=== PATIENT | male | born 1965 | race American Indian/Alaskan Native ===

== ENCOUNTER 2017-06-12 18:41 | Inpatient (IN) | payer OTHER ==
[2017-06-12 18:56] VITALS: BMI 48.1
[2017-06-12 19:25] LABS: ARTERIAL BLOOD GAS HCO3 22.8 mmol/L (21-28); ARTERIAL BLOOD GAS O2 CAPACITY 16.6 mL/dl (16-24); ARTERIAL BLOOD GAS O2 CONTENT 14.7 ML/dl (15-23); ARTERIAL BLOOD GAS PH 7.25 (7.35-7.45); ARTERIAL BLOOD HGB O2 SAT 83.3 % (95.0-98.0); CARBOXYHEMOGLOBIN 5.2 % (0.5-1.5); HHB 10.6 % (0-5); METHEMOGLOBIN 0.9 % (0.0-3.0)
[2017-06-12 19:37] LABS: BASO # 0.01 K/mm3 (0.0-2.0); BASO % 0.2 % (0.0-3.0); EOS # 0.1 (0.0-0.7); EOS % 1.2 % (1.5-5.0); GRAN # 2.85 (1.4-6.5); GRAN % 48.8 % (50.0-68.0); HEMATOCRIT 38.2 % (42.0-52.0); LYMPH # 2.5 (1.2-3.4); LYMPH % 43.5 % (22.0-35.0); MEAN CELL VOLUME 92.9 fl (80.0-105.0); MEAN CORPUSCULAR HEMOGLOBIN 30.9 pg (25.0-35.0); MEAN CORPUSCULAR HGB CONC 33.2 g/dl (31.0-37.0); MONO # 0.4 (0.1-0.6); MONO % 6.3 % (1.0-6.0); RED CELL DISTRIBUTION WIDTH 13.9 % (11.5-14.5); WHITE BLOOD COUNT 5.8 10^3/ul (4.5-11.0)
[2017-06-12 19:49] LABS: INR 0.99 (0.93-1.08); PARTIAL THROMBOPLASTIN TIME 22.9 Seconds (23.7-30.8)
[2017-06-12 19:54] LABS: ALB/GLOB RATIO 1.4 (1.1-1.8); ALKALINE PHOSPHATASE 63 U/L (38-126); ALT/SGPT 21 U/L (7-56); AST/SGOT 29 U/L (17-59); BILIRUBIN,TOTAL 0.6 mg/dL (0.2-1.3); BLOOD UREA NITROGEN 12 mg/dL (7-21); CALCIUM 8.8 mg/dL (8.4-10.5); CARBON DIOXIDE 24 mmol/L (21-33); CHLORIDE 103 mmol/L (98-107); GFR AFRICAN-AMERICAN > 60; GLUCOSE,RANDOM 220 mg/dL (70-110); POTASSIUM 3.5 mmol/L (3.6-5.0); SODIUM 145 mmol/L (132-148)
[2017-06-12 19:58] LABS: ALCOHOL SERUM < 10 mg/dL (0-10)
[2017-06-12] MEDS ORDERED: Sodium Chloride 0.9% 1,000 ML IV ONE (19:59)
[2017-06-12 20:03] LABS: TROPONIN I 0.02 ng/mL
[2017-06-12 20:12] LABS: URINE BILIRUBIN NEGATIVE (NEGATIVE); URINE BLOOD NEGATIVE (NEGATIVE); URINE GLUCOSE (UA) NEGATIVE (NEGATIVE); URINE KETONE NEGATIVE (NEGATIVE); URINE LEUKOCYTE ESTERASE NEGATIVE Leu/uL (NEGATIVE); URINE PROTEIN 30 mg/dL (<30 mg/dL)
[2017-06-12] MEDS ORDERED: Vancomycin 2 GM in Sodium Chloride 0.9% 500 ML IVPB ONE (20:13)
[2017-06-12] MEDS ORDERED: cefTRIAXone 2 GM IN NS 2 GM/100 ML BAG IVPB STA (20:13)
[2017-06-12 20:22] LABS: THYROID STIMULATING HORMONE 3.16 mIU/mL (0.46-4.68)
[2017-06-12 20:26] LABS: URINE APPEARANCE CLEAR (CLEAR); URINE COLOR YELLOW (YELLOW)
[2017-06-12 20:30] LABS: URINE RBC 0 - 2 /hpf (0-2)
[2017-06-12 20:31] LABS: URINE AMORPHOUS SEDIMENT FEW; URINE BACTERIA MOD (NEG); URINE EPITHELIAL CELLS 0 - 2 /hpf (0-5)
--- NOTE | 2017-06-12 21:01 | ED PDOC ---
Arrival/HPI - General Chief Complaint: Seizure Time Seen by Provider: 06/12/17 18:43 Historian: EMS EM Caveat: Altered Mental Status - Critical Care Critical Care Minutes: 45 minutes - History of Present Illness Time/Duration: Prior to Arrival Symptom Course: Unchanged Associated Symptoms (Text): 06/12/17 20:58 Patient presents to the emergency department via ambulance accompanied by medics. Patient alternates between periods of being somewhat lucid and severe agitation. Medics report that the patient was outside and bystanders report that he was doing exercises and then fell to the ground and may or may not have had some kind of seizure activity. He was then extremely agitated. Police were called and medics arrived and patient was brought to the emergency department. In the emergency department the patient alternates between episodes of being somewhat lucid and severe agitation. He required chemical and physical restraints for his own protection and the protection of staff. Patient is extremely large and powerful. He is unable to give any history. There is no past medical history available. Patient apparently has never been to this hospital. Medications and allergies are all unknown. He is unable to give any review of systems. He appears that he may have some kind of substance abuse. He is tachycardic severely diaphoretic and agitated and hypotensive with a blood pressure of 90. Past Medical History - Infectious Disease Hx of Infectious Diseases: None - Psychiatric Hx Substance Use: No (unable to obtain) - Surgical History Other/Comment: unable to obtain - Anesthesia Hx Anesthesia: No Hx Anesthesia Reactions: No Hx Malignant Hyperthermia: No Family/Social History - Physician Review Nursing Documentation Reviewed: Yes Family/Social History: Unknown Family HX Smoking Status: unable to Hx Alcohol Use: No (unable to obtain) Hx Substance Use: No (unable to obtain) Allergies/Home Meds Allergies/Adverse Reactions: Allergies No Known Allergies Allergy (Unverified 06/12/17 18:56) Home Medications: Home Meds Medication Instructions Recorded Confirmed Unobtainable 06/12/17 06/12/17 Review of Systems - Review of Systems Systems not reviewed;Unavailable: Altered Mental Status Physical Exam Vital Signs Temp Pulse Resp BP Pulse Ox 06/12/17 20:07 101.8 F H 120 H 19 120/79 96 06/12/17 18:46 141 H 20 98/73 L 95 Temperature: Febrile Blood Pressure: Hypotensive Pulse: Tachycardic Respiratory Rate: Normal Appearance: Positive for: Well-Appearing, Ill-Appearing Pain Distress: None Mental Status: Positive for: Confused, Agitated Finger Stick Blood Glucose: 225 - Systems Exam Head: Present: Atraumatic, Normocephalic Pupils: Present: Sluggish, Pinpoint Extroacular Muscles: Present: EOMI Conjunctiva: Present: Normal Ears: Present: NORMAL TM, Normal Canal. No: Erythema Mouth: Present: Moist Mucous Membranes Pharnyx: No: ERYTHEMA, EXUDATE, TONSILS ENLARGED Neck: Present: Normal Range of Motion Respiratory/Chest: Present: Clear to Auscultation, Good Air Exchange, Decreased Breath Sounds. No: Respiratory Distress, Accessory Muscle Use Cardiovascular: Present: Regular Rate and Rhythm, Normal S1, S2, Tachycardic. No: Murmurs Abdomen: Present: Normal Bowel Sounds. No: Tenderness, Distention, Rebound, Guarding Back: Present: Normal Inspection Upper Extremity: Present: Normal Inspection. No: Cyanosis, Edema Lower Extremity: Present: Normal Inspection. No: Edema Neurological: Present: CN II-XII Intact, Motor Func Grossly Intact, Other ( unable to test sensation coordinatio gait and stance) Skin: Present: Warm, Normal Color, Diaphoretic. No: Dry, Rashes Psychiatric: Present: Agitated Medical Decision Making ED Course and Treatment: 06/12/17 21:05 EKG shows sinus tachycardia rate approximately 135 with LVH and strain. No acute ST or T-wave changes. No old available for comparison. 06/12/17 21:08 Patient has not had his CT scan of the head. I do not feel that it is safe to remove the patient's restraints at this time. 06/12/17 21:10 Patient was seen and evaluated by the screw machine adjuster automatic for possible ICU admission. He does not feel that the patient needs ICU admission. He will watch the patient in telemetry and upgrade to ICU as necessary. Patient has sepsis with an elevated lactic acid with no apparent source. Possible meningitis, but the patient will require interventional radiology for spinal tap because of his large body habitus. He has been treated with vancomycin and Rocephin. Blood and urine cultures have been obtained. His chest x-ray and urinalysis are unrevealing. He will be admitted to the hospitalist service. - Lab Interpretations Lab Results: 06/12/17 19:15 06/12/17 19:15 Lab Results 06/12/17 20:30: Lactic Acid 2.7 H 06/12/17 20:30: Ammonia 13 06/12/17 19:52: Urine Opiates Screen Positive H, Urine Methadone Screen Negative , Ur Barbiturates Screen Negative, Ur Phencyclidine Scrn Negative, Ur Amphetamines Screen Negative, U Benzodiazepines Scrn Negative, U Oth Cocaine Metabols Negative, U Cannabinoids Screen Negative 06/12/17 19:52: Urine Color Yellow, Urine Appearance Clear, Urine pH 6.0, Ur Specific [place] 1.025, Urine Protein 30 H, Urine Glucose (UA) Negative, Urine Ketones Negative, Urine Blood Negative, Urine Nitrate Negative, Urine Bilirubin Negative, Urine Urobilinogen 1.0 H, Ur Leukocyte Esterase Negative, Urine RBC 0 - 2, Urine WBC 1 - 3, Ur Epithelial Cells 0 - 2, Amorphous Sediment Few, Urine Bacteria Mod 06/12/17 19:20: Acetaminophen < 10.0 L 06/12/17 19:15: TSH 3rd Generation 3.16, Alcohol, Quantitative < 10 06/12/17 19:15: Sodium 145, Potassium 3.5 L, Chloride 103, Carbon Dioxide 24, Anion Gap 22 H, BUN 12, Creatinine 1.4, Est GFR ( Amer) > 60, Est GFR ( Non-Af Amer) 53, Random Glucose 220 H, Calcium 8.8, Phosphorus 5.0 H, Magnesium 2.0, Total Bilirubin 0.6, AST 29, ALT 21, Alkaline Phosphatase 63, Lactate Dehydrogenase 604, Total Creatine Kinase 277 H, CK-MB (CK-2) 1.5, CK-MB (CK-2) % Cancelled, Troponin I 0.02, Total Protein 8.0, Albumin 4.6, Globulin 3.4, Albumin/Globulin Ratio 1.4 06/12/17 19:15: PT 10.7, INR 0.99, APTT 22.9 L 06/12/17 19:15: WBC 5.8, RBC 4.11, Hgb 12.7 L, Hct 38.2 L, MCV 92.9, MCH 30.9, MCHC 33.2, RDW 13.9, Plt Count 373, MPV 10.0, Gran % 48.8 L, Lymph % (Auto) 43.5 H, Person % (Auto) 6.3 H, Eos % (Auto) 1.2 L, Baso % (Auto) 0.2, Gran # 2.85 , Lymph # 2.5, Person # 0.4, Eos # 0.1, Baso # 0.01 06/12/17 19:00: pCO2 52 H, pO2 51.0 L, HCO3 22.8, ABG pH 7.25 L, ABG Total CO2 24.4, ABG O2 Saturation 88.7 L, ABG O2 Content 14.7 L, ABG Base Excess -4.8 L, ABG Hemoglobin 12.6, ABG Carboxyhemoglobin 5.2 H, POC ABG HHb (Measured) 10.6 H , ABG Methemoglobin 0.9, ABG O2 Capacity 16.6, Hgb O2 Saturation 83.3 L, FiO2 21.0 06/12/17 18:46: POC Glucose (mg/dL) 225 H - RAD Interpretation Radiology Orders: 06/12/17 18:56 HEAD W/O CONTRAST [CT] Stat 06/12/17 18:57 CHEST PORTABLE [RAD] Stat X-ray chest required two AP views as a portable exam to include the patient's entire chest showed no infiltrate effusion or cardiomegaly Data Reviewer: ED Physician - Medication Orders Current Medication Orders: Sodium Chloride (Sodium Chloride 0.9%) 1,000 mls @ 500 mls/hr IV ONCE ONE Stop: 06/12/17 21:58 Last Admin: 06/12/17 19:30 Dose: 500 mls/hr eMAR Start Stop Document 06/12/17 19:30 RD (Rec: 06/12/17 20:21 RD [id number]) Intravenous Solution Start Date 06/12/17 Start Time 19:30 End Date 06/12/17 End time 21:30 Total Infusion Time 120 Vancomycin HCl 2 gm/ Sodium (Chloride) 500 mls @ 170 mls/hr IVPB ONCE ONE PRN Reason: Protocol Stop: 06/12/17 23:09 Discontinued Medications Ceftriaxone Sodium (Rocephin 2 Gm Ivpb) 2 gm in 100 mls @ 100 mls/hr IVPB STAT STA PRN Reason: Protocol Stop: 06/12/17 21:12 Last Admin: 06/12/17 20:38 Dose: 100 mls/hr eMAR Start Stop Document 06/12/17 20:38 RD (Rec: 06/12/17 20:38 RD [id number]) Intravenous Solution Start Date 06/12/17 Start Time 20:38 End Date 06/12/17 End time 21:38 Total Infusion Time 60 Lorazepam (Ativan) 2 mg IM STAT STA Stop: 06/12/17 18:57 Last Admin: 06/12/17 19:02 Dose: Ziprasidone (Geodon Inj) 20 mg IM STAT STA Stop: 06/12/17 18:57 Last Admin: 06/12/17 19:02 Dose: Disposition/Present on Arrival - Present on Arrival Any Indicators Present on Arrival: No History of DVT/PE: No History of Uncontrolled Diabetes: No Urinary Catheter: No History of Decub. Ulcer: No History Surgical Site Infection Following: None - Disposition Have Diagnosis and Disposition been Completed?: Yes Diagnosis: Fever, Sepsis, Hyperglycemia, Hypokalemia, Altered mental status, Anemia, Hypoxia, Hypercarbia, Tachycardia, Hypotension, Positive urine drug screen Disposition: HOSPITALIZED Disposition Time: 21:13 Patient Plan: Admission, Telemetry Patient Problems: Current Active Problems Problem Status Onset Altered mental status Acute Anemia Acute Fever Acute Hypercarbia Acute Hyperglycemia Acute Hypokalemia Acute Hypoxia Acute Sepsis Acute Condition: CRITICAL Discharge Instructions (ExitCare): Sepsis (ED) Referrals: PCP,NO [Primary Care Provider] - Follow up with primary Forms: [employer] ([place])
[2017-06-12] MEDS ORDERED: Piperacillin/Tazobact 3.375 gm 100 ML IVPB STA (21:59)
[2017-06-12 22:27] VITALS: O2SAT 97
[2017-06-12] MEDS: Sodium Chloride 0.9% 1,000 ML IV SCH (22:28)
--- NOTE | 2017-06-12 22:43 | CT ---
EXAM: CT Head Without Intravenous Contrast CLINICAL HISTORY: 52 years old, male; Signs and symptoms; Altered mental status/memory loss; Other: Ams/seizure TECHNIQUE: Axial computed tomography images of the head/brain without intravenous contrast. All CT scans at this facility use one or more dose reduction techniques, viz.: automated exposure control; ma/kV adjustment per patient size (including targeted exams where dose is matched to indication; i.e. head); or iterative reconstruction technique. COMPARISON: No relevant prior studies available. FINDINGS: Brain: No acute intracranial hemorrhage. No significant white matter disease. No edema. Ventricles: No significant ventriculomegaly. Bones: No acute displaced fracture. Sinuses: Unremarkable as visualized. No acute sinusitis. Mastoid air cells: Unremarkable as visualized. No mastoid effusion. IMPRESSION: No acute intracranial hemorrhage, or suspicious mass effect.
--- NOTE | 2017-06-12 23:00 | CP.PCM.HP ---
<Jesu Solis - Last Filed: 06/13/17 08:10> History of Present Illness - History of Present Illness History of Present Illness: Chief Complaint AMS HPI Patient is a 52 year old male who presents to [facility] ED 06/14/17 by [facility] stating he was found passed out on the street. Patient states that the night prior he was awake all night attempting to fix his car. He states that he took about four 800 mg Motrin and consumed a 6 pack of beer throughout the night. He then states that he rested his eyes for thirty minutes and woke up to [place] the [place] so he could get money from his son in [place] so he could pay the fender mechanic to help fix his car. He walked for thirty minutes to the light rail station but while on his way he states he stopped at the fender mechanic chatted and drank about two more beers before finally making it to the station. He then states the last he remembers was getting on the train and waking up in the hospital. He states that this happened once before when he didn't get any sleep the night prior. He denies a past history of seizures. Patient states he has been fasting since the start of the summer. His fast includes one meal a day. Patient's last meal was the night before he was found passed out on the light rail. Patient denies any current headache, n/v /d/f/c, dizziness, chest pain, weakness stating his main medical issue are his slipped vertebral discs and leg cramping. PMD: Dr. Kathleen Surgical history: none Family history: extensive for asymptomatic CVA's and OH's Allergies: NKDA Social History: 10 cigarettes per day, 6 beers a day, opiate use Present on Admission - Present on Admission Any Indicators Present on Admission: No Review of Systems - Constitutional Constitutional: absent: Chills, Fever - EENT Eyes: absent: Blurred Vision, Change in Vision Nose/Mouth/Throat: absent: Nasal Congestion, Nasal Discharge - Cardiovascular Cardiovascular: absent: Chest Pain, Dyspnea - Respiratory Respiratory: absent: Cough, Dyspnea - Gastrointestinal Gastrointestinal: absent: Abdominal Pain, Diarrhea, Nausea, Vomiting - Genitourinary Genitourinary: absent: Difficulty Urinating, Dysuria - Neurological Neurological: absent: Dizziness, Tremor, Vertigo - Psychiatric Psychiatric: absent: Anhedonia, Anxiety Past Patient History - Infectious Disease Hx of Infectious Diseases: None - Past Social History Smoking Status: unable to - PSYCHIATRIC Hx Substance Use: No (unable to obtain) - SURGICAL HISTORY Other/Comment: unable to obtain - ANESTHESIA Hx Anesthesia: No Hx Anesthesia Reactions: No Hx Malignant Hyperthermia: No Meds Allergies/Adverse Reactions: Allergies Allergy/AdvReac Type Severity Reaction Status Date / Time No Known Allergies Allergy Unverified 06/12/17 18:56 Physical Exam - Constitutional Appears: Well - Head Exam Head Exam: ATRAUMATIC, NORMAL INSPECTION, NORMOCEPHALIC - Eye Exam Eye Exam: EOMI, Normal appearance - ENT Exam ENT Exam: Mucous Membranes Moist, Normal Exam - Neck Exam Neck exam: Positive for: Normal Inspection - Respiratory Exam Respiratory Exam: Clear to Auscultation Bilateral, NORMAL BREATHING PATTERN. absent: Rhonchi, Wheezes - Cardiovascular Exam Cardiovascular Exam: REGULAR RHYTHM, +S1, +S2 - GI/Abdominal Exam GI & Abdominal Exam: Normal Bowel Sounds, Soft - Extremities Exam Extremities exam: Positive for: normal inspection - Back Exam Back exam: NORMAL INSPECTION - Neurological Exam Neurological exam: Alert, CN II-XII Intact, Oriented x3 - Psychiatric Exam Psychiatric exam: Normal Affect, Normal Mood - Skin Skin Exam: Normal Color, Warm Results - Vital Signs Recent Vital Signs: Last Vital Signs Temp 98.1 F 06/12/17 22:26 Pulse 109 H 06/12/17 22:26 Resp 18 06/12/17 22:26 BP 133/78 06/12/17 22:26 Pulse Ox 97 06/12/17 22:26 - Labs Result Diagrams: 06/13/17 06:45 06/13/17 06:45 Assessment & Plan - Assessment and Plan (Free Text) Assessment: Assessment 52 year old male presenting with AMS Plan Plan: Plan 1. AMS and Leukocytosis - CT head reveals no ICH - F/u results of CXR - Vancomycin - Zosyn - Alcohol serum <10 - Urine drug screen revealed opiate use - UA negative for UTI 2. Elevated Troponins - Initially 0.02, 2nd trops 0.50, 3rd set increased to 0.63 - Cardio consulted - Continue to trend serial EKGs - Aspirin 324 mg chewable given - Lovenox mg 170 given DVT/GI prophylaxis - Heparin/Protonix <Deion Rm MD - Last Filed: 06/14/17 11:22> Results - Vital Signs Recent Vital Signs: Last Vital Signs Temp 98.8 F 06/14/17 06:00 Pulse 79 06/14/17 06:00 Resp 20 06/14/17 06:00 BP 134/75 06/14/17 06:00 Pulse Ox 97 06/14/17 06:00 - Labs Result Diagrams: 06/14/17 07:00 06/14/17 07:00 Labs: Laboratory Results - last 24 hr 06/13/17 06/13/17 06/13/17 06:45 06:45 15:20 WBC RBC Hgb Hct MCV MCH MCHC RDW Plt Count MPV Gran % Lymph % (Auto) [place] % (Auto) Eos % (Auto) Baso % (Auto) Gran # Lymph # [place] # Eos # Baso # Sodium Potassium Chloride Carbon Dioxide Anion Gap BUN Creatinine Est GFR ( Amer) Est GFR (Non-Af Amer) Random Glucose Hemoglobin A1c 6.9 H Lactic Acid Calcium Total Bilirubin AST ALT Alkaline Phosphatase Troponin I 0.29 H* D C-React Prot High Sens 5.24 H Total Protein Albumin Globulin Albumin/Globulin Ratio 06/13/17 06/14/17 06/14/17 23:00 07:00 07:00 WBC 5.2 D RBC 3.71 Hgb 11.3 L Hct 34.3 L MCV 92.5 MCH 30.5 MCHC 32.9 RDW 14.1 Plt Count 251 MPV 9.7 Gran % 49.4 L Lymph % (Auto) 39.4 H [place] % (Auto) 8.7 H Eos % (Auto) 2.3 Baso % (Auto) 0.2 Gran # 2.57 Lymph # 2.1 [place] # 0.5 Eos # 0.1 Baso # 0.01 Sodium 142 Potassium 3.5 L Chloride 108 H Carbon Dioxide 26 Anion Gap 12 BUN 12 Creatinine 1.0 Est GFR ( Amer) > 60 Est GFR (Non-Af Amer) > 60 Random Glucose 115 H Hemoglobin A1c Lactic Acid Calcium 8.4 Total Bilirubin 0.5 AST 53 ALT 26 Alkaline Phosphatase 58 Troponin I 0.21 H* D C-React Prot High Sens Total Protein 6.7 Albumin 3.7 Globulin 3.0 Albumin/Globulin Ratio 1.2 06/14/17 10:00 WBC RBC Hgb Hct MCV MCH MCHC RDW Plt Count MPV Gran % Lymph % (Auto) [place] % (Auto) Eos % (Auto) Baso % (Auto) Gran # Lymph # [place] # Eos # Baso # Sodium Potassium Chloride Carbon Dioxide Anion Gap BUN Creatinine Est GFR ( Amer) Est GFR (Non-Af Amer) Random Glucose Hemoglobin A1c Lactic Acid 1.1 Calcium Total Bilirubin AST ALT Alkaline Phosphatase Troponin I C-React Prot High Sens Total Protein Albumin Globulin Albumin/Globulin Ratio Attending/Attestation - Attestation I have personally seen and examined this patient.: Yes I have fully participated in the care of the patient.: Yes I have reviewed all pertinent clinical information: Yes Notes (Text): -I agree with the above H&P completed by the resident physician with the following additions and/or changes: -The patient is a 52 year old man with no significant medical history, being admitted for syncopal episode possibly due to opiate abuse (vs cardiac etiology) . CT-head was negative. Of note, after being admitted to the [facility] this AM, his 2nd troponin returned elevated at 0.50 (although the patient denies chest pain). EKG didn't showed only non-specific ST changes but no ST-elevation. He will be started on daily ASA and therpeutic Lovenox (for presumed NSTEMI treatment). Cardiology has been consulted for further evaluation. Serial trop's and EKG's will also be monitored.
[2017-06-12] MEDS ORDERED: Pneumococcal 23-Valent Vaccine IM ONE (23:22)
[2017-06-12] MEDS: Insulin Reg-LOW-Coverage SC SCH (23:36)
[2017-06-13] MEDS ORDERED: Enoxaparin 40 mg Syringe SC STA (02:48)
[2017-06-13] MEDS ORDERED: Enoxaparin 150 mg Syringe SC STA (03:32)
[2017-06-13 07:22] LABS: BASO # 0.01 K/mm3 (0.0-2.0); BASO % 0.1 % (0.0-3.0); EOS # 0.1 (0.0-0.7); EOS % 0.9 % (1.5-5.0); GRAN # 4.81 (1.4-6.5); HEMATOCRIT 32.5 % (42.0-52.0); LYMPH # 2.2 (1.2-3.4); LYMPH % 28.3 % (22.0-35.0); MEAN CELL VOLUME 93.1 fl (80.0-105.0); MEAN CORPUSCULAR HEMOGLOBIN 30.1 pg (25.0-35.0); MEAN CORPUSCULAR HGB CONC 32.3 g/dl (31.0-37.0); MEAN PLATELET VOLUME 9.7 fl (7.0-11.0); MONO # 0.6 (0.1-0.6); MONO % 7.7 % (1.0-6.0); RED CELL DISTRIBUTION WIDTH 14.4 % (11.5-14.5); WHITE BLOOD COUNT 7.6 10^3/ul (4.5-11.0)
[2017-06-13 07:36] LABS: ALB/GLOB RATIO 1.3 (1.1-1.8); ALKALINE PHOSPHATASE 54 U/L (38-126); ALT/SGPT 29 U/L (7-56); AST/SGOT 55 U/L (17-59); BILIRUBIN,TOTAL 0.4 mg/dL (0.2-1.3); BLOOD UREA NITROGEN 12 mg/dL (7-21); CALCIUM 8.2 mg/dL (8.4-10.5); CARBON DIOXIDE 25 mmol/L (21-33); CHLORIDE 107 mmol/L (98-107); GFR AFRICAN-AMERICAN > 60; GLUCOSE,RANDOM 105 mg/dL (70-110); POTASSIUM 3.4 mmol/L (3.6-5.0); SODIUM 142 mmol/L (132-148); TOTAL PROTEIN 6.5 g/dL (5.8-8.3)
[2017-06-13 07:47] LABS: TROPONIN I 0.63 ng/mL
[2017-06-13] MEDS: Insulin Reg-LOW-Coverage SC SCH ×4 (08:35→22:10)
[2017-06-13] MEDS: Sodium Chloride 0.9% 1,000 ML IV SCH ×2 (08:36→17:07)
[2017-06-13] MEDS: Vancomycin 1gm in NS 250ml 1 GM/250 ML BAG IVPB SCH (09:37)
[2017-06-13] MEDS: Enoxaparin 80 mg Syringe SC SCH ×2 (09:47→21:43)
--- NOTE | 2017-06-13 10:51 | RAD ---
HISTORY: Altered mental status. Technique: Single view portable semi erect @ 20:30 COMPARISON: No prior. FINDINGS: LUNGS: No active pulmonary disease. PLEURA: No significant pleural effusion identified, no pneumothorax apparent. CARDIOVASCULAR: Cardiomegaly. No evidence of acute, significant cardiovascular disease. OSSEOUS STRUCTURES: No significant abnormalities. VISUALIZED UPPER ABDOMEN: Normal. OTHER FINDINGS: None. IMPRESSION: No active disease. Please note: No preliminary report/ innterpretation of this examination provided by emergency department personnel.
--- NOTE | 2017-06-13 11:50 | CON ---
DATE: 06/13/2017 REQUESTING PHYSICIAN: Dr. Smith. REASON FOR CONSULTATION: Elevated troponin. HISTORY OF PRESENT ILLNESS: This is a 52-year-old man, brought to the emergency room via ambulance with altered mental status. He apparently had a syncopal event. He was seen on telemetry. He is somewhat somnolent and unable to get much history at the present time. Every question is answered with request to remove his Erickson catheter. According to the hospital records, he had been up all night trying to repair his car. He was drinking beer as well as taking multiple Motrin. He was brought to the emergency room. He was tachycardiac and transiently hypotensive. He denies any chest pain. His toxicology screen was positive for opiates. PAST MEDICAL HISTORY: His past history is notable for some back issues. MEDICATIONS: He has been started on Ecotrin, insulin coverage, and vancomycin. ALLERGIES: NONE. SOCIAL HISTORY: He has a history of alcohol use. He denies smoking. FAMILY HISTORY: He cannot recall. REVIEW OF SYSTEMS: A 10-point review of systems is virtually unobtainable given his mental status. PHYSICAL EXAMINATION: GENERAL: He is an obese, middle-aged man. VITAL SIGNS: His blood pressure is 132/78 with a pulse of 110 and sinus, respirations are 16. He is afebrile. HEENT: Thick neck is noted. No JVD seen. CHEST: Few scattered rhonchi. HEART: PMI displaced laterally with systolic murmur in the lower left sternal border. ABDOMEN: Soft, obese, nontender, normoactive bowel sounds. EXTREMITIES: No edema. SKIN: Warm and dry. PSYCHIATRIC: Appears calm at present. NEUROLOGIC: Moving all four extremities. Oriented to person and year. DIAGNOSTIC DATA: Initial troponin 0.02, follow up is 0.50. CK is 277. Potassium 3.5, BUN and creatinine are 12 and 1.4, glucose is 220. White count 5.8, hemoglobin and hematocrit, 12.7 and 38.2 with platelet counts 373,000. PT and PTT are normal. Arterial blood gas showed a pH of 7.25, PCO2 of 52, and PO2 of 51 on room air. Toxicology was positive for opiates. Alcohol level was less than 10. Electrocardiogram reveals sinus rhythm with LVH with repolarization abnormalities. Chest x-ray is pending. IMPRESSION: 1. Borderline troponin of questionable significance. The patient denies any chest pain at present; however, history his history giving is somewhat questionable. 2. Abnormal electrocardiogram, possible left ventricular hypertrophy. 3. Substance abuse. 4. Obesity. RECOMMENDATIONS: Followup enzymes will be planned. Repeat electrocardiogram in the morning is advisable. Hopefully, once his mental status has improved, we will possible obtain better history from the patient. Thank you for this consultation. We will be happy to follow as needed. Allen De Leon MD MTDD
--- NOTE | 2017-06-13 18:42 | CARD ---
APPROVED REPORT EKG Measurement Heart [id number] [place] [id number] <Conclusion> Normal sinus rhythm Marked ST abnormality, possible inferior subendocardial injury Prolonged QT Abnormal ECG
--- NOTE | 2017-06-13 19:36 | CARD ---
APPROVED REPORT EKG Measurement Heart [id number] [place] [id number] <Conclusion> Sinus tachycardia Left ventricular hypertrophy with repolarization abnormality Consider cintia-lateral ischemia Abnormal ECG
--- NOTE | 2017-06-13 19:49 | CARD ---
APPROVED REPORT EKG Measurement Heart [id number] [place] [id number] [id number] <Conclusion> Normal sinus rhythm Marked ST abnormality, possible inferior subendocardial injury Prolonged QT Abnormal ECG
[2017-06-14 06:13] VITALS: BP 134/75; RESP 20; TEMP 98.8
[2017-06-14] MEDS: Sodium Chloride 0.9% 1,000 ML IV SCH (06:59)
[2017-06-14 07:21] LABS: BASO # 0.01 K/mm3 (0.0-2.0); BASO % 0.2 % (0.0-3.0); EOS # 0.1 (0.0-0.7); EOS % 2.3 % (1.5-5.0); GRAN # 2.57 (1.4-6.5); GRAN % 49.4 % (50.0-68.0); HEMATOCRIT 34.3 % (42.0-52.0); LYMPH # 2.1 (1.2-3.4); LYMPH % 39.4 % (22.0-35.0); MEAN CELL VOLUME 92.5 fl (80.0-105.0); MEAN CORPUSCULAR HEMOGLOBIN 30.5 pg (25.0-35.0); MEAN CORPUSCULAR HGB CONC 32.9 g/dl (31.0-37.0); MEAN PLATELET VOLUME 9.7 fl (7.0-11.0); MONO # 0.5 (0.1-0.6); MONO % 8.7 % (1.0-6.0); RED CELL DISTRIBUTION WIDTH 14.1 % (11.5-14.5); WHITE BLOOD COUNT 5.2 10^3/ul (4.5-11.0)
[2017-06-14 07:37] LABS: ALB/GLOB RATIO 1.2 (1.1-1.8); ALKALINE PHOSPHATASE 58 U/L (38-126); ALT/SGPT 26 U/L (7-56); AST/SGOT 53 U/L (17-59); BILIRUBIN,TOTAL 0.5 mg/dL (0.2-1.3); BLOOD UREA NITROGEN 12 mg/dL (7-21); CALCIUM 8.4 mg/dL (8.4-10.5); CARBON DIOXIDE 26 mmol/L (21-33); CHLORIDE 108 mmol/L (98-107); GFR AFRICAN-AMERICAN > 60; GLUCOSE,RANDOM 115 mg/dL (70-110); POTASSIUM 3.5 mmol/L (3.6-5.0); SODIUM 142 mmol/L (132-148); TOTAL PROTEIN 6.7 g/dL (5.8-8.3)
[2017-06-14] MEDS: Insulin Reg-LOW-Coverage SC SCH ×2 (09:52→12:08)
[2017-06-14] MEDS: Enoxaparin 80 mg Syringe SC SCH (09:56)
[2017-06-14] MEDS: Vancomycin 1gm in NS 250ml 1 GM/250 ML BAG IVPB SCH (09:58)
[2017-06-14] MEDS ORDERED: Potassium Chloride 20 mEq ER Tab PO SCH (10:00)
--- NOTE | 2017-06-14 10:55 | CARD ---
APPROVED REPORT EKG Measurement Heart [id number] [place] [id number] <Conclusion> Sinus rhythm with occasional premature ventricular complexes ST & Marked T wave abnormality, consider anterolateral ischemia Prolonged QT Abnormal ECG
--- NOTE | 2017-06-14 15:04 | CARD ---
APPROVED REPORT EKG Measurement Heart [id number] [place] [id number] [id number] <Conclusion> Sinus rhythm with 1st degree AV block ST & T wave abnormality, consider inferolateral ischemia
[2017-06-14 16:04] VITALS: PULSE 77
--- NOTE | 2017-06-14 16:17 | CP.PCM.DIS ---
<BhaktiPointblank - Last Filed: 06/14/17 20:16> Provider - Provider Date of Admission: 06/12/17 21:16 Attending physician: Gisel Alejo MD Primary care physician: NO PRIMARY CARE PROVIDER Time Spent in preparation of Discharge (in minutes): 45 Hospital Course - Lab Results Lab Results: Most Recent Lab Values WBC 5.2 10^3/ul (4.5-11.0) D 06/14/17 07:00 RBC 3.71 10^6/uL (3.5-6.1) 06/14/17 07:00 Hgb 11.3 g/dL (14.0-18.0) L 06/14/17 07:00 Hct 34.3 % (42.0-52.0) L 06/14/17 07:00 MCV 92.5 fl (80.0-105.0) 06/14/17 07:00 MCH 30.5 pg (25.0-35.0) 06/14/17 07:00 MCHC 32.9 g/dl (31.0-37.0) 06/14/17 07:00 RDW 14.1 % (11.5-14.5) 06/14/17 07:00 Plt Count 251 10^3/uL (120.0-450.0) 06/14/17 07:00 MPV 9.7 fl (7.0-11.0) 06/14/17 07:00 Gran % 49.4 % (50.0-68.0) L 06/14/17 07:00 Lymph % (Auto) 39.4 % (22.0-35.0) H 06/14/17 07:00 [place] % (Auto) 8.7 % (1.0-6.0) H 06/14/17 07:00 Eos % (Auto) 2.3 % (1.5-5.0) 06/14/17 07:00 Baso % (Auto) 0.2 % (0.0-3.0) 06/14/17 07:00 Gran # 2.57 (1.4-6.5) 06/14/17 07:00 Lymph # 2.1 (1.2-3.4) 06/14/17 07:00 [place] # 0.5 (0.1-0.6) 06/14/17 07:00 Eos # 0.1 (0.0-0.7) 06/14/17 07:00 Baso # 0.01 K/mm3 (0.0-2.0) 06/14/17 07:00 ESR 12 mm/hr (0.00-15.0) 06/13/17 03:00 PT 10.7 Seconds (9.9-11.8) 06/12/17 19:15 INR 0.99 (0.93-1.08) 06/12/17 19:15 APTT 22.9 Seconds (23.7-30.8) L 06/12/17 19:15 pCO2 52 mm/Hg (35-45) H 06/12/17 19:00 pO2 51.0 mm/Hg (80-100) L 06/12/17 19:00 HCO3 22.8 mmol/L (21-28) 06/12/17 19:00 ABG pH 7.25 (7.35-7.45) L 06/12/17 19:00 ABG Total CO2 24.4 mmol.L (22-28) 06/12/17 19:00 ABG O2 Saturation 88.7 % (95-98) L 06/12/17 19:00 ABG O2 Content 14.7 ML/dl (15-23) L 06/12/17 19:00 ABG Base Excess -4.8 mmol/L (-2.0-3.0) L 06/12/17 19:00 ABG Hemoglobin 12.6 g/dL (11.7-17.4) 06/12/17 19:00 ABG Carboxyhemoglobin 5.2 % (0.5-1.5) H 06/12/17 19:00 POC ABG HHb (Measured) 10.6 % (0-5) H 06/12/17 19:00 ABG Methemoglobin 0.9 % (0.0-3.0) 06/12/17 19:00 ABG O2 Capacity 16.6 mL/dl (16-24) 06/12/17 19:00 Hgb O2 Saturation 83.3 % (95.0-98.0) L 06/12/17 19:00 FiO2 21.0 % 06/12/17 19:00 Sodium 142 mmol/L (132-148) 06/14/17 07:00 Potassium 3.5 mmol/L (3.6-5.0) L 06/14/17 07:00 Chloride 108 mmol/L (98-107) H 06/14/17 07:00 Carbon Dioxide 26 mmol/L (21-33) 06/14/17 07:00 Anion Gap 12 (10-20) 06/14/17 07:00 BUN 12 mg/dL (7-21) 06/14/17 07:00 Creatinine 1.0 mg/dL (0.8-1.5) 06/14/17 07:00 Est GFR ( Amer) > 60 06/14/17 07:00 Est GFR (Non-Af Amer) > 60 06/14/17 07:00 POC Glucose (mg/dL) 225 mg/dL (65-110) H 06/12/17 18:46 Random Glucose 115 mg/dL (70-110) H 06/14/17 07:00 Hemoglobin A1c 6.9 % (4.2-6.5) H 06/13/17 06:45 Lactic Acid 1.1 mmol/L (0.7-2.1) 06/14/17 10:00 Calcium 8.4 mg/dL (8.4-10.5) 06/14/17 07:00 Phosphorus 5.0 mg/dL (2.5-4.5) H 06/12/17 19:15 Magnesium 2.0 mg/dL (1.7-2.2) 06/12/17 19:15 Total Bilirubin 0.5 mg/dL (0.2-1.3) 06/14/17 07:00 AST 53 U/L (17-59) 06/14/17 07:00 ALT 26 U/L (7-56) 06/14/17 07:00 Alkaline Phosphatase 58 U/L (38-126) 06/14/17 07:00 Ammonia 13 umol/L (9-33) 06/12/17 20:30 Lactate Dehydrogenase 604 U/L (333-699) 06/12/17 19:15 Total Creatine Kinase 277 U/L (35-230) H 06/12/17 19:15 CK-MB (CK-2) 1.5 ng/mL (0.0-3.6) 06/12/17 19:15 CK-MB (CK-2) % Cancelled 06/12/17 19:15 Troponin I 0.21 ng/mL H* D 06/13/17 23:00 C-React Prot High Sens 5.24 mg/L (1.00-3.00) H 06/13/17 06:45 Total Protein 6.7 g/dL (5.8-8.3) 06/14/17 07:00 Albumin 3.7 g/dL (3.0-4.8) 06/14/17 07:00 Globulin 3.0 gm/dL 06/14/17 07:00 Albumin/Globulin Ratio 1.2 (1.1-1.8) 06/14/17 07:00 Procalcitonin 0.05 NG/ML (0.19-0.49) L 06/12/17 19:15 TSH 3rd Generation 1.09 mIU/mL (0.46-4.68) 06/13/17 06:45 Urine Color Yellow (YELLOW) 06/12/17 19:52 Urine Appearance Clear (CLEAR) 06/12/17 19:52 Urine pH 6.0 (4.7-8.0) 06/12/17 19:52 Ur Specific [place] 1.025 (1.005-1.035) 06/12/17 19:52 Urine Protein 30 mg/dL (<30 mg/dL) H 06/12/17 19:52 Urine Glucose (UA) Negative mg/dL (NEGATIVE) 06/12/17 19:52 Urine Ketones Negative mg/dL (NEGATIVE) 06/12/17 19:52 Urine Blood Negative (NEGATIVE) 06/12/17 19:52 Urine Nitrate Negative (NEGATIVE) 06/12/17 19:52 Urine Bilirubin Negative (NEGATIVE) 06/12/17 19:52 Urine Urobilinogen 1.0 E.U./dL (<1 E.U./dL) H 06/12/17 19:52 Ur Leukocyte Esterase Negative Carol/uL (NEGATIVE) 06/12/17 19:52 Urine RBC 0 - 2 /hpf (0-2) 06/12/17 19:52 Urine WBC 1 - 3 /hpf (0-6) 06/12/17 19:52 Ur Epithelial Cells 0 - 2 /hpf (0-5) 06/12/17 19:52 Amorphous Sediment Few 06/12/17 19:52 Urine Bacteria Mod (NEG) 06/12/17 19:52 Urine Opiates Screen Positive (NEGATIVE) H 06/12/17 19:52 Urine Methadone Screen Negative (NEGATIVE) 06/12/17 19:52 Acetaminophen < 10.0 ug/ml (10.0-20.0) L 06/12/17 19:20 Ur Barbiturates Screen Negative (NEGATIVE) 06/12/17 19:52 Ur Phencyclidine Scrn Negative (NEGATIVE) 06/12/17 19:52 Ur Amphetamines Screen Negative (NEGATIVE) 06/12/17 19:52 U Benzodiazepines Scrn Negative (NEGATIVE) 06/12/17 19:52 U Oth Cocaine Metabols Negative (NEGATIVE) 06/12/17 19:52 U Cannabinoids Screen Negative (NEGATIVE) 06/12/17 19:52 Alcohol, Quantitative < 10 mg/dL (0-10) 06/12/17 19:15 - Hospital Course Hospital Course: This is a 52 year old male with a past medical history of questionable diabetes and hypertension who presents to [facility] by [place] [facility] stating he was found passed out on the street. Patient states that the night prior he was awake all night attempting to fix his car. He states that he took about four 800 mg Motrin and consumed 6 pack of beer throughout the night. He then states that he rested his eyes for thirty minutes and woke up to walk to the [employer] station so he could get money from his son in [place] so he could pay the roll forming machine set up mechanic to help fix his car. He walked [place] thirty minutes [place] [employer] [place] station but while on his way he states he stopped at the roll forming machine set up mechanic and drank about two more beers before finally making it toe the station. He then states the last thing he remembers was getting on the train and waking up in the hospital. He states this happened once before when he didn't get any sleep the night prior. He denies any history of seizures. Patient also states he has been fasting since the start of the summer. Patient denies any current headache, n/v/d/f/c, dizziness, chest pain, weakness stating his main medical issue are his slipped vertebral discs and leg cramping. The patient was seen by Cardiology while admitted. The patient had a head ct done that was negative for any acute process. The patient also had an ekg done that showed sinus tachycardia at a rate of 135 with LVH and strain. No acute ST-T changes noted. The patient initial troponins was .63. The troponins after the initial were trending down. The patient was admitted to Telemetry and started on Vancomycin and Rocephin for prophylaxis treatment for possible meningitis. The patient was seen by Cardiology who recommended trending the troponins and order an ECHO. The ECHO was taken however the patient refused to stay for the results and signed out AMA. Patient promised to return to the hospital if echo required further workup. I told the patient I would call with the results of the echo. Discharge Exam - Head Exam Head Exam: ATRAUMATIC, NORMAL INSPECTION, NORMOCEPHALIC - Eye Exam Eye Exam: EOMI, Normal appearance, PERRL, Scleral icterus Pupil Exam: NORMAL ACCOMODATION, PERRL. absent: Irregular, Unequal - ENT Exam ENT Exam: Mucous Membranes Moist, Normal Oropharynx - Respiratory Exam Respiratory Exam: Clear to PA & Lateral, NORMAL BREATHING PATTERN, UNREMARKABLE. absent: Rales, Rhonchi - Cardiovascular Exam Cardiovascular Exam: REGULAR RHYTHM, +S1, +S2. absent: Clicks, Gallop, Rubs - GI/Abdominal Exam GI & Abdominal Exam: Normal Bowel Sounds, Unremarkable - Back Exam Back exam: NORMAL INSPECTION. absent: CVA tenderness (L), CVA tenderness (R), paraspinal tenderness - Neurological Exam Neurological exam: Alert, CN II-XII Intact, Oriented x3, Reflexes Normal - Psychiatric Exam Psychiatric exam: Normal Affect, Normal Mood - Skin Skin Exam: Dry, Normal Color Discharge Plan - Follow Up Plan Condition: CRITICAL Disposition: AGAINST MEDICAL ADVICE Referrals: PCP,ALLIE [Primary Care Provider] - <Gisel Alejo - Last Filed: 06/15/17 09:06> Provider - Provider Date of Admission: 06/12/17 21:16 Attending physician: Gisel Alejo MD Primary care physician: NO PRIMARY CARE PROVIDER Hospital Course - Lab Results Lab Results: Most Recent Lab Values WBC 5.2 10^3/ul (4.5-11.0) D 06/14/17 07:00 RBC 3.71 10^6/uL (3.5-6.1) 06/14/17 07:00 Hgb 11.3 g/dL (14.0-18.0) L 06/14/17 07:00 Hct 34.3 % (42.0-52.0) L 06/14/17 07:00 MCV 92.5 fl (80.0-105.0) 06/14/17 07:00 MCH 30.5 pg (25.0-35.0) 06/14/17 07:00 MCHC 32.9 g/dl (31.0-37.0) 06/14/17 07:00 RDW 14.1 % (11.5-14.5) 06/14/17 07:00 Plt Count 251 10^3/uL (120.0-450.0) 06/14/17 07:00 MPV 9.7 fl (7.0-11.0) 06/14/17 07:00 Gran % 49.4 % (50.0-68.0) L 06/14/17 07:00 Lymph % (Auto) 39.4 % (22.0-35.0) H 06/14/17 07:00 [place] % (Auto) 8.7 % (1.0-6.0) H 06/14/17 07:00 Eos % (Auto) 2.3 % (1.5-5.0) 06/14/17 07:00 Baso % (Auto) 0.2 % (0.0-3.0) 06/14/17 07:00 Gran # 2.57 (1.4-6.5) 06/14/17 07:00 Lymph # 2.1 (1.2-3.4) 06/14/17 07:00 [place] # 0.5 (0.1-0.6) 06/14/17 07:00 Eos # 0.1 (0.0-0.7) 06/14/17 07:00 Baso # 0.01 K/mm3 (0.0-2.0) 06/14/17 07:00 ESR 12 mm/hr (0.00-15.0) 06/13/17 03:00 PT 10.7 Seconds (9.9-11.8) 06/12/17 19:15 INR 0.99 (0.93-1.08) 06/12/17 19:15 APTT 22.9 Seconds (23.7-30.8) L 06/12/17 19:15 pCO2 52 mm/Hg (35-45) H 06/12/17 19:00 pO2 51.0 mm/Hg (80-100) L 06/12/17 19:00 HCO3 22.8 mmol/L (21-28) 06/12/17 19:00 ABG pH 7.25 (7.35-7.45) L 06/12/17 19:00 ABG Total CO2 24.4 mmol.L (22-28) 06/12/17 19:00 ABG O2 Saturation 88.7 % (95-98) L 06/12/17 19:00 ABG O2 Content 14.7 ML/dl (15-23) L 06/12/17 19:00 ABG Base Excess -4.8 mmol/L (-2.0-3.0) L 06/12/17 19:00 ABG Hemoglobin 12.6 g/dL (11.7-17.4) 06/12/17 19:00 ABG Carboxyhemoglobin 5.2 % (0.5-1.5) H 06/12/17 19:00 POC ABG HHb (Measured) 10.6 % (0-5) H 06/12/17 19:00 ABG Methemoglobin 0.9 % (0.0-3.0) 06/12/17 19:00 ABG O2 Capacity 16.6 mL/dl (16-24) 06/12/17 19:00 Hgb O2 Saturation 83.3 % (95.0-98.0) L 06/12/17 19:00 FiO2 21.0 % 06/12/17 19:00 Sodium 142 mmol/L (132-148) 06/14/17 07:00 Potassium 3.5 mmol/L (3.6-5.0) L 06/14/17 07:00 Chloride 108 mmol/L (98-107) H 06/14/17 07:00 Carbon Dioxide 26 mmol/L (21-33) 06/14/17 07:00 Anion Gap 12 (10-20) 06/14/17 07:00 BUN 12 mg/dL (7-21) 06/14/17 07:00 Creatinine 1.0 mg/dL (0.8-1.5) 06/14/17 07:00 Est GFR ( Amer) > 60 06/14/17 07:00 Est GFR (Non-Af Amer) > 60 06/14/17 07:00 POC Glucose (mg/dL) 225 mg/dL (65-110) H 06/12/17 18:46 Random Glucose 115 mg/dL (70-110) H 06/14/17 07:00 Hemoglobin A1c 6.9 % (4.2-6.5) H 06/13/17 06:45 Lactic Acid 1.1 mmol/L (0.7-2.1) 06/14/17 10:00 Calcium 8.4 mg/dL (8.4-10.5) 06/14/17 07:00 Phosphorus 5.0 mg/dL (2.5-4.5) H 06/12/17 19:15 Magnesium 2.0 mg/dL (1.7-2.2) 06/12/17 19:15 Total Bilirubin 0.5 mg/dL (0.2-1.3) 06/14/17 07:00 AST 53 U/L (17-59) 06/14/17 07:00 ALT 26 U/L (7-56) 06/14/17 07:00 Alkaline Phosphatase 58 U/L (38-126) 06/14/17 07:00 Ammonia 13 umol/L (9-33) 06/12/17 20:30 Lactate Dehydrogenase 604 U/L (333-699) 06/12/17 19:15 Total Creatine Kinase 277 U/L (35-230) H 06/12/17 19:15 CK-MB (CK-2) 1.5 ng/mL (0.0-3.6) 06/12/17 19:15 CK-MB (CK-2) % Cancelled 06/12/17 19:15 Troponin I 0.21 ng/mL H* D 06/13/17 23:00 C-React Prot High Sens 5.24 mg/L (1.00-3.00) H 06/13/17 06:45 Total Protein 6.7 g/dL (5.8-8.3) 06/14/17 07:00 Albumin 3.7 g/dL (3.0-4.8) 06/14/17 07:00 Globulin 3.0 gm/dL 06/14/17 07:00 Albumin/Globulin Ratio 1.2 (1.1-1.8) 06/14/17 07:00 Procalcitonin 0.05 NG/ML (0.19-0.49) L 06/12/17 19:15 TSH 3rd Generation 1.09 mIU/mL (0.46-4.68) 06/13/17 06:45 Urine Color Yellow (YELLOW) 06/12/17 19:52 Urine Appearance Clear (CLEAR) 06/12/17 19:52 Urine pH 6.0 (4.7-8.0) 06/12/17 19:52 Ur Specific [place] 1.025 (1.005-1.035) 06/12/17 19:52 Urine Protein 30 mg/dL (<30 mg/dL) H 06/12/17 19:52 Urine Glucose (UA) Negative mg/dL (NEGATIVE) 06/12/17 19:52 Urine Ketones Negative mg/dL (NEGATIVE) 06/12/17 19:52 Urine Blood Negative (NEGATIVE) 06/12/17 19:52 Urine Nitrate Negative (NEGATIVE) 06/12/17 19:52 Urine Bilirubin Negative (NEGATIVE) 06/12/17 19:52 Urine Urobilinogen 1.0 E.U./dL (<1 E.U./dL) H 06/12/17 19:52 Ur Leukocyte Esterase Negative Carol/uL (NEGATIVE) 06/12/17 19:52 Urine RBC 0 - 2 /hpf (0-2) 06/12/17 19:52 Urine WBC 1 - 3 /hpf (0-6) 06/12/17 19:52 Ur Epithelial Cells 0 - 2 /hpf (0-5) 06/12/17 19:52 Amorphous Sediment Few 06/12/17 19:52 Urine Bacteria Mod (NEG) 06/12/17 19:52 Urine Opiates Screen Positive (NEGATIVE) H 06/12/17 19:52 Urine Methadone Screen Negative (NEGATIVE) 06/12/17 19:52 Acetaminophen < 10.0 ug/ml (10.0-20.0) L 06/12/17 19:20 Ur Barbiturates Screen Negative (NEGATIVE) 06/12/17 19:52 Ur Phencyclidine Scrn Negative (NEGATIVE) 06/12/17 19:52 Ur Amphetamines Screen Negative (NEGATIVE) 06/12/17 19:52 U Benzodiazepines Scrn Negative (NEGATIVE) 06/12/17 19:52 U Oth Cocaine Metabols Negative (NEGATIVE) 06/12/17 19:52 U Cannabinoids Screen Negative (NEGATIVE) 06/12/17 19:52 Alcohol, Quantitative < 10 mg/dL (0-10) 06/12/17 19:15 Attending/Attestation - Attestation I have personally seen and examined this patient.: Yes I have fully participated in the care of the patient.: Yes I have reviewed all pertinent clinical information, including history, physical exam and plan: Yes Notes (Text): 06/14/17 52 year old male who presented after being found passed out on the street. He admitted he was drinking too much alcohol the day of presentation. He was admitted for altered mental status which has resolved. He was counselled on alcohol cessation and risks of substance abuse. Although he had fever on presentation he did not have any leukocytosis. Cultures were negative to date. CT head was negative for acute findings and he denied headache, neck pain or nuchal rigidity. Meningitis not likely. He was found to have elevated cardiac enzymes and started on aspirin, statin and lovenox for possible NSTEMI although he denies any chest pain. He was seen by cardiology and echocardiogram was done this morning. However this afternoon he decided to sign out against medical advice. He was explained the risks of signing out AMA. Gisel Alejo MD Hospitalist.
--- NOTE | 2017-06-15 07:14 | CP.PCM.PN ---
Subjective - Date & Time of Evaluation Date of Evaluation: 06/14/17 Time of Evaluation: 07:00 - Subjective Subjective: Stable on 2R. No chest pain or SOB. V/S noted. [place]itz 1 second degree AVB with 2 sec pauses noted. PE: Lungs: clear Cor.: S1S2 Abd.: soft Ext.: no edema Neuro.: alert I/T=1620/1650 Labs noted: K+= 3.5. + trops noted. BC x2 NG at 24 hrs. ECG's noted: Extensive STTW changes noted. Objective - Vital Signs/Intake and Output Vital Signs (last 24 hours): Temp Pulse Resp BP Pulse Ox 98.8 F 79 20 134/75 97 06/14/17 06:00 06/14/17 06:00 06/14/17 06:00 06/14/17 06:00 06/14/17 06:00 Intake and Output: 06/14/17 06/14/17 06:59 18:59 Intake Total 1820 Output Total 1650 Balance 170 - Medications Medications: Current Medications Acetaminophen (Tylenol 325mg Tab) 650 mg PO Q6H PRN PRN Reason: Fever >100.4 F Aspirin (Aspirin) 325 mg PO DAILY [facility] Last Admin: 06/13/17 09:37 Dose: 325 mg Atorvastatin Calcium (Lipitor) 40 mg PO DIN [facility] Last Admin: 06/13/17 17:05 Dose: 40 mg Enoxaparin Sodium (Lovenox) 160 mg SC Q12H YASH PRN Reason: Protocol Last Admin: 06/13/17 21:43 Dose: 160 mg Sodium Chloride (Sodium Chloride 0.9%) 1,000 mls @ 100 mls/hr IV .Q10H [facility] Last Admin: 06/14/17 06:59 Dose: 100 mls/hr Vancomycin HCl (Vancomycin 1gm) 1 gm in 250 mls @ 167 mls/hr IVPB DAILY [facility] PRN Reason: Protocol Last Admin: 06/13/17 09:37 Dose: 167 mls/hr Insulin Human Regular (Humulin R Low) 0 units SC ACHS YASH PRN Reason: Protocol Last Admin: 06/13/17 22:10 Dose: Not Given Metoprolol Tartrate (Lopressor) 25 mg PO BID [facility] Last Admin: 06/13/17 17:05 Dose: 25 mg - Labs Labs: 06/14/17 07:00 06/14/17 07:00 PT 10.7 Seconds (9.9-11.8) 06/12/17 19:15 INR 0.99 (0.93-1.08) 06/12/17 19:15 APTT 22.9 Seconds (23.7-30.8) L 06/12/17 19:15 Assessment and Plan - Assessment and Plan (Free Text) Assessment: Syncope AMS Poly substance abuse: opiates, daily beer drinking Abnormal ECG and + trops, possible OH Chronic back pain Obesity FH of ASCVD Plan: D/C metoprolol due to [place] 1 2nd degree AVB. Check echo. OOB ETT vs. Cath D/C ETOH and Opiates Replace K+ OOB as emmanuel.
--- NOTE | 2017-06-15 09:13 | CARD ---
APPROVED REPORT EXAM: Two-dimensional and M-mode echocardiogram with Doppler and color Doppler. Other Information Quality : FairRhythm : INDICATION Syncope + TROPONIN,R/O GA 2D DIMENSIONS Left Atrium (2D)4.2 (1.6-4.0cm)IVSd1.2 (0.7-1.1cm) LVDd5.8 (3.9-5.9cm)PWd1.3 (0.7-1.1cm) LVDs3.5 (2.5-4.0cm)FS (%) 41.9 % LVEF (%)72.0 (>50%) M-Mode DIMENSIONS Aortic Root3.70 (2.2-3.7cm)Aortic Cusp Exc.2.20 (1.5-2.0cm) Aortic Valve AoV Peak Eigaopgc212.0cm/sLVOT Peak Wimsxgup908.0cm/sLVOT VTI25.70cm Mitral Valve MV E Osizpbbl765.0cm/sMV A Khbvzzfj92.6cm/sE/A ratio1.2 TDI Lateral E' Peak V6.92cm/sMedial E' Peak V6.53cm/sE/Lateral E'16.6 E/Medial E'17.6 Pulmonary Valve PV Peak Xwpdnlnb57.9cm/sPV Peak Grad.2mmHg Tricuspid Valve TR Peak [id number]/sRAP [id number] Peak Gr.5mmHg [id number] LEFT VENTRICLE The left ventricle is normal size. There is mild concentric left ventricular hypertrophy. The left ventricular function is normal. The left ventricular ejection fraction is within the normal range. There is normal LV segmental wall motion. RIGHT VENTRICLE The right ventricle is normal size. ATRIA The left atrium is mildly dilated. The right atrium size is normal. The interatrial septum is intact with no evidence for an atrial septal defect. AORTIC VALVE The aortic valve is normal in structure. MITRAL VALVE The mitral valve is normal in structure. Mitral regurgitation is trace to mild. TRICUSPID VALVE The tricuspid valve is not well visualized. There is trace to mild tricuspid regurgitation. PULMONIC VALVE The pulmonic valve is not well visualized. GREAT VESSELS The aortic root is normal in size. PERICARDIAL EFFUSION There is no pericardial effusion. <Conclusion> The left ventricle is normal size. There is mild concentric left ventricular hypertrophy. The left ventricular function is normal. Mitral regurgitation is trace to mild. There is trace to mild tricuspid regurgitation.
== END 2017-06-14 16:30 | disposition left against medical advice (07) | DRG 901 ==
LOC: ED 18:41 → ERH 21:16 → 2RNO 22:36
PROVIDERS: ADMIT Internal Medicine; ATTEND Internal Medicine
DX: A41.9 Sepsis, unspecified organism (principal); R56.9 Unspecified convulsions; F11.10 Opioid abuse, uncomplicated; E87.6 Hypokalemia; R09.02 Hypoxemia; E66.9 Obesity, unspecified; D64.9 Anemia, unspecified; F17.210 Nicotine dependence, cigarettes, uncomplicated; G89.29 Other chronic pain; I25.10 Atherosclerotic heart disease of native coronary artery without angina pectoris; Z82.3 Family history of stroke; Z82.49 Family history of ischemic heart disease and other diseases of the circulatory system; R73.9 Hyperglycemia, unspecified; D72.829 Elevated white blood cell count, unspecified; I51.7 Cardiomegaly; F19.10 Other psychoactive substance abuse, uncomplicated; M54.9 Dorsalgia, unspecified